=== PATIENT | male | born 1955 | race African-American/Black ===

== ENCOUNTER 2017-03-12 08:54 | Emergency (ER) | payer OTHER ==
[~2017-03-12] VITALS: Ht 175.3 cm; Wt 68.0 kg
[~2017-03-12 08:54] MED LIST: CIPR-263; NO MEDS
[2017-03-12 11:42] VITALS: BP 116/56
== END 2017-03-12 11:43 | disposition home or self-care (01) ==
LOC: ER 09:10
DX: M25.461 Effusion, right knee (principal)
CPT/HCPCS: 73562; 99284

== ENCOUNTER 2017-03-23 20:10 | Emergency (ER) | payer OTHER ==
[~2017-03-23] VITALS: Ht 175.3 cm; Wt 75.0 kg
[2017-03-23] MEDS ORDERED: SODIUM CHLORIDE 0.9% 1,000 ML IV ONE ×2 (21:27→23:15)
[2017-03-23 21:53] LABS: BASOPHILS % 0.4 % (0.0-2.0); EOSINOPHILS % 0.7 % (0.0-5.0); HEMATOCRIT. 40.2 % (42.0-52.0); HEMOGLOBIN. 13.7 g/dL (14.0-18.0); LYMPHOCYTES % 13.1 % (20.0-50.0); MEAN CORPUSCULAR HEMOGLOBIN 29.7 pg (28.0-32.0); MEAN CORPUSCULAR VOLUME 87.7 fL (80.0-94.0); MEAN PLATELET VOLUME 7.7 fl (7.4-10.4); NEUTROPHILS % 76.8 % (40.0-76.0); PLATELET 199 x1000/uL (130-400); RED BLOOD CELL COUNT 4.59 mill/uL (4.7-6.1)
[2017-03-23 22:00] LABS: INR 1.1; PARTIAL THROMBOPLASTIN TIME 26.5 sec (23.4-31.0); PROTHROMBIN TIME 11.3 sec (9.4-11.6)
[2017-03-23 22:02] LABS: CARBON DIOXIDE 29 mEq/L (21-32); CHLORIDE 103 mEq/L (98-107)
[2017-03-23 22:07] LABS: CREATINE KINASE 156 IU/L (39-308); CREATINE KINASE MB FRACTION 1.8 ng/mL (0.5-3.6); TROPONIN I < 0.02 ng/mL (0.00-0.04)
[2017-03-23 23:01] LABS: CLARITY URINE CLEAR (CLEAR); COLOR URINE YELLOW (YELLOW); GLUCOSE URINE NEGATIVE (NEGATIVE); KETONES URINE NEGATIVE (NEGATIVE); LEUKOCYTE ESTERASE URINE NEGATIVE (NEGATIVE); NITRITE URINE NEGATIVE (NEGATIVE); OCCULT BLOOD URINE NEGATIVE (NEGATIVE); PH URINE 5.5 (4.5-8.0); PROTEIN URINE NEGATIVE (NEGATIVE); SPECIFIC GRAVITY URINE 1.007 (1.005-1.030); UROBILINOGEN URINE 0.2 E.U./dL (0.2-1.0)
[2017-03-24 01:17] VITALS: BP 117/70
== END 2017-03-24 01:17 | disposition home or self-care (01) ==
LOC: ER 21:50
DX: R53.1 Weakness (principal); R19.7 Diarrhea, unspecified; R42 Dizziness and giddiness; R11.2 Nausea with vomiting, unspecified; R50.9 Fever, unspecified; Z98.890 Other specified postprocedural states
CPT/HCPCS: 36415; 74022; 80053; 81003; 82550; 82553; 83735; 83880; 84484; 85025; 85610; 85730; 87086; 93005; 96360; 99285; J7030; Z7610

== ENCOUNTER 2017-06-12 21:41 | Emergency (ER) | payer SELFPAY ==
[~2017-06-12] VITALS: Ht 177.8 cm; Wt 56.0 kg
[2017-06-13 04:12] LABS: BASOPHILS % 0.5 % (0.0-2.0); EOSINOPHILS % 1.1 % (0.0-5.0); HEMATOCRIT. 40.2 % (42.0-52.0); HEMOGLOBIN. 13.3 g/dL (14.0-18.0); LYMPHOCYTES % 28.7 % (20.0-50.0); MEAN CORPUSCULAR HEMOGLOBIN 29.2 pg (28.0-32.0); MEAN CORPUSCULAR VOLUME 88.1 fL (80.0-94.0); MEAN PLATELET VOLUME 7.6 fl (7.4-10.4); MONOCYTES % 12.6 % (2.0-8.0); NEUTROPHILS % 57.1 % (40.0-76.0); PLATELET 193 x1000/uL (130-400); RED BLOOD CELL COUNT 4.56 mill/uL (4.7-6.1); RED CELL DISTRIBUTION WIDTH 14.5 % (11.6-14.6)
[2017-06-13 04:19] LABS: INR 1.1; PROTHROMBIN TIME 11.5 sec (9.4-11.6)
[2017-06-13 04:23] LABS: CHLORIDE 104 mEq/L (98-107)
[2017-06-13 10:20] VITALS: BP 130/67
== END 2017-06-13 10:00 | disposition short-term general hospital (02) ==
LOC: ER 21:41
DX: S02.40FA Zygomatic fracture, left side, initial encounter for closed fracture (principal); S00.211A Abrasion of right eyelid and periocular area, initial encounter; G93.89 Other specified disorders of brain; W01.0XXA Fall on same level from slipping, tripping and stumbling without subsequent striking against object, initial encounter; Y93.89 Activity, other specified; Y92.89 Other specified places as the place of occurrence of the external cause
CPT/HCPCS: 36415; 70450; 70486; 80053; 85025; 85610; 99285; Z7610

== ENCOUNTER 2020-01-14 10:51 | Emergency (ER) | payer BC ==
[~2020-01-14] VITALS: Ht 177.8 cm; Wt 70.0 kg
[2020-01-14] MEDS ORDERED: ACETAMINOPHEN 325MG TABLET PO ONE (12:00)
[2020-01-14 13:45] VITALS: BP 108/59
== END 2020-01-14 13:57 | disposition home or self-care (01) ==
LOC: ER 11:07
DX: M25.561 Pain in right knee (principal)
CPT/HCPCS: 73562; 99283

== ENCOUNTER 2020-09-14 17:28 | Emergency (ER) | payer BC ==
[~2020-09-14] VITALS: Ht 177.8 cm; Wt 64.0 kg
[2020-09-14 17:50] VITALS: BP 106/72
[2020-09-14] MEDS ORDERED: KETOROLAC 60MG/2ML VIAL IM ONE (18:00)
[2020-09-14] MEDS ORDERED: TRAM50TA MT (18:15)
[2020-09-14] MEDS ORDERED: IBUP-2029 MT (18:15)
== END 2020-09-14 19:02 | disposition home or self-care (01) ==
LOC: ER 17:28
DX: S69.82XA Other specified injuries of left wrist, hand and finger(s), initial encounter (principal); Z87.81 Personal history of (healed) traumatic fracture; Z98.890 Other specified postprocedural states; W11.XXXA Fall on and from ladder, initial encounter; Y93.89 Activity, other specified; Y92.018 Other place in single-family (private) house as the place of occurrence of the external cause
CPT/HCPCS: 29125; 73110; 73130; 96372; 99284; J1885

== ENCOUNTER 2021-12-05 14:16 | Emergency (ER) | payer BC ==
[~2021-12-05] VITALS: Ht 177.8 cm; Wt 63.0 kg
[~2021-12-05 14:16] MED LIST changes: +IBUP-2029 MT; +TRAM50TA MT
[2021-12-05] MEDS ORDERED: IBUPROFEN 400MG TABLET PO ONE (19:45)
[2021-12-05] MEDS ORDERED: IBUP-2028 MT (21:11)
[2021-12-05 21:31] VITALS: BP 113/65
== END 2021-12-05 21:32 | disposition home or self-care (01) ==
LOC: ER 15:01
DX: M25.512 Pain in left shoulder (principal); Z79.899 Other long term (current) drug therapy
CPT/HCPCS: 73010; 73030; 99284